=== PATIENT | female | born 1930 | race Caucasian/White ===

== ENCOUNTER → 2016-10-17 | Outpatient (CLI) | payer OTHER | LOC: FIMAGING 08:21 | PROVIDERS: ATTEND Internal Medicine | DX: M81.0 Age-related osteoporosis without current pathological fracture (principal); E03.9 Hypothyroidism, unspecified; I48.91 Unspecified atrial fibrillation; I10 Essential (primary) hypertension; E78.00 Pure hypercholesterolemia, unspecified ==

== ENCOUNTER 2017-04-26 15:59 | Emergency (ER) | payer OTHER ==
--- NOTE | 2017-04-26 18:09 | EDPHY ---
H & P Time Seen by Provider: 04/26/17 17:43 HPI/ROS: CHIEF COMPLAINT: Head injury HISTORY OF PRESENT ILLNESS: 86-year-old female history of daily Eliquis use arrives via private vehicle after she sustained a mechanical fall when she tripped on her [place] lights impacting the occiput of her head with no loss of consciousness. Occurred shortly prior to arriva. She sustained a laceration to her occiput. She denies: Headache, nausea, vomiting, midline C- spine pain, peripheral paresthesia, weakness, numbness, midline back pain or any other symptoms. PRIMARY CARE PROVIDER: Dr. Bree Pool REVIEW OF SYSTEMS: A ten point review of systems was performed and is negative with the exception of the items mentioned in the HPI PAST MEDICAL/SURGICAL HISTORY: Daily Eliquis use secondary to cardiac history SOCIAL HISTORY: denies alcohol use at time of incident PHYSICAL EXAM 1) GENERAL: Well-developed, well-nourished, alert and oriented. Appears to be in no acute distress. Answering questions appropriately. 2) HEAD: Normocephalic, 4 cm occipital laceration. No galea defects 3) HEENT: Pupils equal, round, reactive to light bilaterally. Negative Horners. Nasopharynx, oropharynx, clear. No deformity or angulation of nose. No septal hematoma. No rhinorrhea. No oral trauma. Ears bilaterally with normal tympanic membranes. No hemotympanum. No fluid or blood in the external auditory canal. No raccoon eyes. No Hubbard sign. Teeth are normally aligned with no gross malocclusion, TMJ bilaterally nontender, facial bones nontender including the zygomatic arch, maxilla mandible. 4) NECK: No cervical collar is on. Posterior cervical spine is nontender, no stepoff, no effusion. Full range of motion which does not elicit any midline cervical spine pain, no posterior midline tenderness, no step-off. 5) LUNGS: Clear to auscultation bilaterally, no wheezes, no rhonchi, no retractions. No obvious signs of trauma. No chest wall pain. No flaring, no grunting. Moving symmetrically. No crepitus. 6) HEART: Regular rate and rhythm, 7) ABDOMEN: No guarding, no rebound, no focal tenderness, no peritoneal signs, no signs of trauma, no ecchymosis 8) MUSCULOSKELETAL: Moving all extremities, no focal areas of tenderness, no obvious trauma. 9) BACK: No midline vertebral tenderness, no fluctuance, no step-off, no obvious trauma, no visual or palpable abnormality. 10) SKIN: occipital laceration DIFFERENTIAL DIAGNOSIS: Not necessarily in any particular order, my differential diagnosis includes, but is not limited to, concussion, skull fracture, intraparenchymal contusion, subarachnoid, subdural and epidural hematoma. The patient understands that this diagnosis is provisional and can never be 100% accurate. Smoking Status: Former smoker Constitutional: Initial Vital Signs Temperature (C) 36.6 C 04/26/17 16:06 Heart Rate 78 04/26/17 16:06 Respiratory Rate 18 04/26/17 16:06 Blood Pressure 186/78 H 04/26/17 16:06 O2 Sat (%) 94 04/26/17 16:06 O2 Delivery Mode Room Air Allergies/Adverse Reactions: Sulfa (Sulfonamide Antibiotics) Allergy (Verified 04/26/17 16:04) Home Medications: Medication Instructions Recorded Cholecalciferol Vit D3 [Vitamin D3 2,000 units PO DAILY 05/12/15 2000 units (OTC)] Levothyroxine [Synthroid] 88 mcg PO DAILY06 05/12/15 Acetaminophen [Tylenol 325mg (*)] 650 mg PO Q4 PRN #30 tab 05/22/15 Amiodarone HCl [Pacerone (*)] 200 mg PO DAILY #45 tab 05/22/15 Furosemide [Lasix 20 MG (*)] 40 mg PO BID #60 tab 05/22/15 Nitroglycerin [Nitrostat 0.4 mg 0.4 mg SL PRN PRN #1 btl 05/22/15 (*)] Potassium Cl [Klor-Con 10 meq (RX)] 20 meq PO BID #60 tab 05/22/15 Eliquis 05/20/16 Lisinopril 04/26/17 MDM/Departure - MDM Procedures: Procedure: Laceration repair. I explained the indications, risks and benefits for both laceration repair and anesthetic administration. Verbal consent was obtained from the patient . The laceration on the occiput was anesthetized using 0.5% bupivicaine with epinephrine . After anesthetic administered the patient was observed for a period of time and had no apparent adverse effects. The wound was cleaned, prepped, draped in normal sterile fashion and explored to its base. No foreign body seen, no foreign bodies palpated. There were no deep structures involved. No galea defects identified. The wound was repaired with 6 giacomo . The wound repair was complex. The procedure was performed by myself. Patient has been informed that scarring will occur, although efforts have been made to minimize this.This ED Course/Re-evaluation: 6:08 p.m.:Care of patient under supervision of secondary supervising physician Dr Sanford . Head CT ordered in this patient for trauma for the following indication: greater than 65 years old, anticoagulated.. 6:33 p.m.: Discussed with patient her negative imaging interpreted by staff radiologist Dr. Andrade. She is answering question appropriately. She is here with family members with whom she lives. Given head injury precautions instructions including delayed intracranial bleeding. She feels comfortable being discharged as do family members. Usual and customary head injury precautions and instructions provided. - Depart Disposition: Home, Routine, Self-Care Clinical Impression: Laceration Head injury due to trauma Qualifiers: Encounter type: initial encounter Qualified Code(s): S09.90XA - Unspecified injury of head, initial encounter Condition: Good Instructions: Head Injury (ED), Laceration (ED) Additional Instructions: ALTHOUGH THERE IS NO EVIDENCE OF SERIOUS HEAD INJURY AT THIS TIME, DELAYED SIGNS CAN APPEAR 24 TO 48 HOURS AFTER INJURY. WE RECOMMEND THAT YOU DESIGNATE A FRIEND OR FAMILY MEMBER TO OBSERVE YOU OVER THE NEXT FEW DAYS TO ENSURE THAT YOUR CONDITION IS PROGRESSING NORMALLY. PLEASE RETURN TO THE EMERGENCY DEPARTMENT (ED) IMMEDIATELY IF YOU HAVE INCREASED HEADACHE, PERSISTENT HEADACHE , VOMITING, WEAKNESS, CONFUSION OR VISUAL PROBLEMS. WE RECOMMEND THAT YOU DO NOT RESUME CONTACT SPORTS OR ACTIVITIES THAT TAKE COORDINATION OR BALANCE SUCH SKIING OR RIDING A BICYCLE UNTIL CLEARED TO DO SO BY YOUR DOCTOR OR BY A NEUROLOGIST. Referrals: Return, to the ER in 7-days for staple removal [Other] - 05/03/17
[2017-04-26 18:57] VITALS: BP 162/82; PULSE 66; RESP 16; TEMP 98.6; O2SAT 92
== END 2017-04-26 18:59 | disposition home or self-care (01) ==
PROC: 0HQ0XZZ Repair Scalp Skin, External Approach (ICD-10-PCS; principal; 2017-04-26)
DX: S01.01XA Laceration without foreign body of scalp, initial encounter (principal); Z79.01 Long term (current) use of anticoagulants; Z87.891 Personal history of nicotine dependence; W01.198A Fall on same level from slipping, tripping and stumbling with subsequent striking against other object, initial encounter

== ENCOUNTER 2018-03-21 14:52 | Observation (INO) | payer OTHER ==
[2018-03-21] MEDS ORDERED: DIAZEPAM 5 MG PREPACK#4 BTL TAKEHOME ONE (15:11)
[2018-03-21] MEDS ORDERED: DIAZEPAM 5 MG TAB PO ONE (15:11)
--- NOTE | 2018-03-21 15:12 | EDPHY ---
H & P Stated Complaint: left sided low back/hip pain hx of sciatica Time Seen by Provider: 03/21/18 15:04 HPI/ROS: CHIEF COMPLAINT: Right gluteal pain HISTORY OF PRESENT ILLNESS: The patient is an 87-year-old female who reports a history of recurrent episodes of low back pain. They typically improved with a heating pad and Aleve. Occasionally they radiate down her right leg but she is not having radiation today. No weakness or numbness. No recent trauma. No fever. She does not remember picking anything heavy up or any specific injury. She tried her heating pad and Aleve today without improvement. She points to her right upper gluteus as the area of pain. No radiation. Which is unusual for her previous episodes of pain. No tingling or numbness. No weakness. No incontinence. She is able to ambulate but with pain. She has frequent spasms that 10 to release after a few seconds. Her pain is improved with massage. She does take Eliquis for history of atrial fibrillation. Severity: Severe Modifying factors: Improved slightly with Aleve REVIEW OF SYSTEMS: Constitutional: denies: chills, fever, recent illness, recent injury EENTM: denies: blurred vision, double vision, nose congestion Respiratory: denies: cough, shortness of breath Cardiac: denies: chest pain, irregular heart rate, lightheadedness, palpitations Gastrointestinal/Abdominal: denies: abdominal pain, diarrhea, nausea, vomiting, blood streaked stools Genitourinary: denies: dysuria, frequency, hematuria, pain Musculoskeletal: See HPI Skin: denies: lesions, rash, jaundice, bruising Neurological: denies: headache, numbness, paresthesia, tingling, dizziness, weakness Hematologic/Lymphatic: denies: blood clots, easy bleeding, easy bruising Immunologic/allergic: denies: HIV/AIDS, transplant 10 systems reviewed and negative except as noted EXAM: GENERAL: Well-appearing, well-nourished and in moderate distress. HEAD: Atraumatic, normocephalic. EYES: Pupils equal round and reactive to light, extraocular movements intact, sclera anicteric, conjunctiva are normal. ENT: TMs normal, nares patent, oropharynx clear without exudates. Moist mucous membranes. NECK: Normal range of motion, supple without lymphadenopathy or JVD. LUNGS: Breath sounds clear to auscultation bilaterally and equal. No wheezes rales or rhonchi. HEART: Regular rate and rhythm without murmurs, rubs or gallops. ABDOMEN: Soft, nontender, normoactive bowel sounds. No guarding, no rebound. No masses appreciated. BACK: Right lower back/upper gluteal pain. No radiation. EXTREMITIES: No weakness or numbness. No paresthesias. Normal pulses. Normal range of motion, no pitting or edema. No clubbing or cyanosis. NEUROLOGICAL: Cranial nerves II through XII grossly intact. Normal speech, pain with gait but normal weight-bearing. 5/5 strength, movement in all extremities, normal sensation, normal reflexes PSYCH: Normal mood, normal affect. SKIN: Warm, dry, normal turgor, no visible rashes or lesions. Source: Patient Exam Limitations: No limitations - Personal History Current Tetanus Diphtheria and Acellular Pertussis (TDAP): Yes - Medical/Surgical History Hx Asthma: No Hx Chronic Respiratory Disease: No Hx Diabetes: No Hx Cardiac Disease: Yes Hx Renal Disease: No Hx Cirrhosis: No Hx Alcoholism: No Hx HIV/AIDS: No Hx Splenectomy or Spleen Trauma: No Other PMH: Hypertension, Hyperlipidemia, Atrial Fib. 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 - Family History Significant Family History: No pertinent family hx - Social History Smoking Status: Former smoker Alcohol Use: None Drug Use: None Constitutional: Initial Vital Signs Temperature (C) 36.4 C 03/21/18 14:57 Heart Rate 77 03/21/18 14:57 Respiratory Rate 16 03/21/18 14:57 Blood Pressure 179/80 H 03/21/18 14:57 O2 Sat (%) 96 03/21/18 14:57 O2 Delivery Mode Room Air Allergies/Adverse Reactions: Sulfa (Sulfonamide Antibiotics) Allergy (Verified 04/26/17 16:04) Home Medications: Medication Instructions Recorded Cholecalciferol Vit D3 [Vitamin D3 2,000 units PO DAILY 05/12/15 2000 units (OTC)] Levothyroxine [Synthroid] 88 mcg PO DAILY06 05/12/15 Acetaminophen [Tylenol 325mg (*)] 650 mg PO Q4 PRN #30 tab 05/22/15 Amiodarone HCl [Pacerone (*)] 200 mg PO DAILY #45 tab 05/22/15 Furosemide [Lasix 20 MG (*)] 40 mg PO BID #60 tab 05/22/15 Nitroglycerin [Nitrostat 0.4 mg 0.4 mg SL PRN PRN #1 btl 05/22/15 (*)] Potassium Cl [Klor-Con 10 meq (RX)] 20 meq PO BID #60 tab 05/22/15 Eliquis 05/20/16 Lisinopril 04/26/17 ALENDRONATE SODIUM 03/21/18 Stool Softener 03/21/18 Medical Decision Making - Diagnostics Imaging Results: Imaging Impressions Lumbar Spine CT 03/21/18 17:21 Impression: 1. Multilevel moderate to severe degenerative disk disease and facet arthropathy, as described above. 2. L4-L5: Severe central canal stenosis secondary to severe degenerative disk disease and bilateral facet arthropathy. 3. L5-S1: Moderate central canal stenosis secondary to moderate degenerative disk disease and bilateral facet arthropathy. 4. L3-L4: Moderate to severe central canal stenosis secondary to moderate degenerative disk disease, left paramedian disk herniation, and severe bilateral facet arthropathy. 5. Recommend MRI lumbar spine and Neurosurgery Consult. 6. Please see above findings. Findings and recommendations discussed with Emergency Department physician, Virgil Reagan M.D., at 1805 hours, on March 21, 2018. Final report concurs with initial preliminary interpretation. Pelvis CT 03/21/18 17:21 Impression: 1. Severe central canal stenosis at L3-L4 and L4-L5 secondary to severe degenerative disk disease and facet arthropathy. Consider MRI lumbar spine. 2. Sigmoid diverticulosis without diverticulitis. 3. No evidence of appendicitis. 4. Constipation. 5. No evidence of gluteus masses or hematomas. Findings and recommendations discussed with Emergency Department physician, VIRGIL REAGAN at 1800 hour, 03/21/2018. Final report concurs with initial preliminary interpretation. Imaging: Discussed imaging studies w/ orthopedically impaired teacher Radiologist Procedures: Bupivacaine injection: Patient was given 10 cc of bupivacaine 0.5 without epinephrine. He was injected into her trigger point in the right upper gluteus area. She tolerated the procedure well. This is done under sterile conditions. ED Course/Re-evaluation: The patient denies any trauma, fever, immunocompromise or high risk signs for low back pain. We we discussed treatment options and agreed to try muscle relaxant. I will give her Valium. She understands that it will be sedating. Her states "so I can count on a TV dinner tonight then". I do not think that imaging is warranted because there is no sign of trauma. Patient and agree with this. Pain is the muscular area of her gluteus improves with massage. Could be an element of SI joint pain. She and her actually had an appointment here today for phlebotomy. Her primary has ordered LFTs and TSH. We will do those here for her in the ER. 4:20 p.m. 45 min after receiving Valium the patient still is having significant pain. She is now requesting the IM bupivacaine injection that was offered previously. This was done under sterile conditions. The patient tolerated the procedure well. 5:20 p.m. the patient has not had any relief of her symptoms. We will place an IV and give Dilaudid and I will order CT scan. 6:15 p.m. we discussed the CT results which do not reveal any fractures or the pelvic abnormalities however she does have severe central canal stenosis particularly at the L4-5 level. This would correlate with her right gluteal pain. It does not radiate down her leg however. She states that in the past it has. She denies paresthesias or weakness. I think that an MRI is probably indicated at some point although I am not sure needs to be done emergently if she can currently ambulate and does not have any weakness or incontinence etc. She is very eager to go home is not wish to be admitted to the hospital. She thinks that her pain is feeling much better. We will give her road test. 6:45 p.m. the patient is able to ambulate but with significant pain. No weakness appreciated. I would like to admit her for pain control. She agrees to this. I have also ordered an MRI. I have consulted the hospitalist service who will admit. We will likely consult Neurosurgery after the MRI however I do not think she is an acute candidate for surgical intervention because she is not exhibiting weakness or paresthesias. Differential Diagnosis: Partial list of the Differential diagnosis considered include but were not limited to; low back pain, radiculopathy, muscle spasm and although unlikely based on the history and physical exam, I also considered infection, fracture, tumor, hematoma. - Data Points Laboratory Results: Laboratory Results 03/21/18 15:30 03/21/18 15:30 03/21/18 03/21/18 03/21/18 15:30 15:30 15:30 WBC 7.36 10^3/uL 10^3/uL (3.80-9.50) RBC 3.95 10^6/uL L 10^6/uL (4.18-5.33) Hgb 13.0 g/dL g/dL (12.6-16.3) Hct 39.6 % % (38.0-47.0) MCV 100.3 fL H fL (81.5-99.8) MCH 32.9 pg pg (27.9-34.1) MCHC 32.8 g/dL g/dL (32.4-36.7) RDW 12.9 % % (11.5-15.2) Plt Count 230 10^3/uL 10^3/uL (150-400) MPV 9.7 fL fL (8.7-11.7) Neut % (Auto) 63.4 % % (39.3-74.2) Lymph % (Auto) 22.3 % % (15.0-45.0) [place] % (Auto) 10.1 % % (4.5-13.0) Eos % (Auto) 2.7 % % (0.6-7.6) Baso % (Auto) 1.0 % % (0.3-1.7) Nucleat RBC Rel Count 0.0 % % (0.0-0.2) Absolute Neuts (auto) 4.67 10^3/uL 10^3/uL (1.70-6.50) Absolute Lymphs (auto) 1.64 10^3/uL 10^3/uL (1.00-3.00) Absolute Monos (auto) 0.74 10^3/uL 10^3/uL (0.30-0.80) Absolute Eos (auto) 0.20 10^3/uL 10^3/uL (0.03-0.40) Absolute Basos (auto) 0.07 10^3/uL 10^3/uL (0.02-0.10) Absolute Nucleated RBC 0.00 10^3/uL 10^3/uL (0-0.01) Immature Gran % 0.5 % % (0.0-1.1) Immature Gran # 0.04 10^3/uL 10^3/uL (0.00-0.10) Sodium 137 mEq/L mEq/L (135-145) Potassium 4.5 mEq/L mEq/L (3.3-5.0) Chloride 100 mEq/L mEq/L (97-110) Carbon Dioxide 28 mEq/l mEq/l (22-31) Anion Gap 9 mEq/L mEq/L (6-14) BUN 25 mg/dL H mg/dL (7-23) Creatinine 1.2 mg/dL H mg/dL (0.6-1.0) Estimated GFR 43 Glucose 84 mg/dL mg/dL (70-100) Calcium 9.1 mg/dL mg/dL (8.5-10.4) Total Bilirubin 0.4 mg/dL mg/dL (0.1-1.4) Conjugated Bilirubin 0.2 mg/dL mg/dL (0.0-0.5) Unconjugated Bilirubin 0.2 mg/dL mg/dL (0.0-1.1) AST 29 IU/L IU/L (14-46) ALT 25 IU/L IU/L (9-52) Alkaline Phosphatase 74 IU/L IU/L (38-126) Total Protein 6.8 g/dL g/dL (6.3-8.2) Albumin 3.8 g/dL g/dL (3.5-5.0) TSH 3.300 uIU/mL uIU/mL (0.465-4.680) Medications Given: Discontinued Medications Diazepam (Valium) 5 mg PO EDNOW ONE Stop: 03/21/18 15:12 Last Admin: 03/21/18 15:15 Dose: 5 mg Diazepam (Valium 5 Mg Prepack#4) 1 btl TAKEHOME EDNOW ONE Stop: 03/21/18 15:12 Last Admin: 03/21/18 15:23 Dose: 1 btl Hydromorphone HCl (Dilaudid) 0.5 mg IVP EDNOW ONE Stop: 03/21/18 17:23 Last Admin: 03/21/18 17:37 Dose: 0.5 mg Departure - Departure Disposition: [facility] Acute Clinical Impression: Radiculopathy of lumbar region Condition: Fair
[2018-03-21] MEDS ORDERED: HYDROmorphONE/DILAUDID 2 MG/ML INJ IVP ONE (17:22)
[2018-03-21 18:34] LABS: PLATELET COUNT 230 10^3/uL (150-400)
[2018-03-21] MEDS ORDERED: ONDANSETRON 4 MG/2 ML VIAL IVP PRN (22:44)
[2018-03-21] MEDS ORDERED: HYDROCODONE/APAP 5/325 TAB PO PRN (22:44)
[2018-03-21] MEDS ORDERED: ONDANSETRON DISINTEGRATING 4 MG TAB PO PRN (22:44)
[2018-03-21] MEDS ORDERED: HYDROmorphONE/DILAUDID 1 MG/ML INJ IVP PRN (22:44)
[2018-03-21] MEDS ORDERED: ACETAMINOPHEN 325 MG TAB PO PRN (22:44)
[2018-03-21] MEDS ORDERED: NS 1,000 ML IV SCH (22:45)
[2018-03-22] MEDS ORDERED: NITROGLYCERIN 0.4 MG BTL SL PRN (00:44)
[2018-03-22] MEDS: APIXABAN 5 MG TAB PO SCH ×2 (01:13→10:01)
--- NOTE | 2018-03-22 03:28 | PDGENHP ---
History and Physical - Chief Complaint right low back and buttock pain - History of Present Illness Source - Patient provides history and appears reliable. EMR reviewed and case discussed with accepting hospitalist. 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 Patient reports that she has had ongoing issues intermittently with her lumbar pain and occasional radiculopathy down into her lower leg. Patient describes the pain as sharp stabbing in her right lower lumbar region/sacrum with radiation into her right gluteus. Patient reports that her symptoms typically will improve with a hot pad after several hours however today they did not and were more severe than normal. Patient denies any recent falls or trauma. She does have a previous history of head injury due to mechanical fall. Patient denies any numbness or tingling. She denies any focal weakness. At this time patient reports that her pain is significantly improved she does have a still a bit of aching in her buttock on the right but not the same sharp stabbing pain she was experiencing previously. Patient denies any urinary retention no fecal incontinence. History Information - Allergies/Home Medication List Allergies/Adverse Reactions: Sulfa (Sulfonamide Antibiotics) Allergy (Verified 04/26/17 16:04) Home Medications: Levothyroxine [Synthroid] 88 mcg PO DAILY06 05/12/15 [Last Taken 03/21/18] Lisinopril [Zestril 20 mg (*)] 20 mg PO DAILY 04/26/17 [Last Taken 03/21/18] Apixaban [Eliquis] 5 mg PO BID 03/21/18 [Last Taken 03/21/18 09:00] Furosemide [Lasix 20 MG (*)] 40 mg PO BID 03/21/18 [Last Taken 03/21/18 09:00] Potassium Chloride [Klor-Con M20] 20 meq PO BID 03/21/18 [Last Taken 03/21/18 09 :00] I have personally reviewed and updated: family history, medical history, social history, surgical history - Past Medical History Additional medical history: HTN, HLD, epistaxis requiring cautery, paroxysmal atrial fibrillation on Eliquis, CHF NOS, CAD status post 1 vessel CABG, history of mechanical fall leading to head injury. Hypothyroidism. CKD stage 3 (cr 1.1- 1.3). - Surgical History Additional surgical history: Mitral valve replacement, tricuspid valve repair, CABG 1 vessel 2014, cautery of left knee air for epistaxis, cataract extraction with lens placement bilaterally. - Family History Additional family history: Father-, degenerative disc disease. Mother- , CAD and CHF. Sister-, CAD - Social History Smoking Status: Former smoker (Quit .) Alcohol Use: None Drug Use: None Additional social history: Patient is lives with her . Cor status-full not to exceed 5 days of life support. Review of Systems Review of Systems: ROS: 10pt was reviewed & negative except for what was stated in HPI & below Constitutional: Reports: no symptoms. Denies: recent illness EENMT: Reports: no symptoms Cardiac: Reports: no symptoms. Denies: edema Respiratory: Reports: no symptoms Gastrointestinal: Reports: no symptoms, constipation Genitourinary: Reports: no symptoms Muscolosketal: Reports: back pain (See HPI), muscle pain (Right gluteal aching.) Skin: Reports: no symptoms. Denies: rash Neurological: Reports: no symptoms. Denies: depressed, emotional problems, numbness, tingling, tremors, weakness Hematologic/Lymphatic: Reports: no symptoms Physical Exam Physical Exam: Selected Entries 03/21/18 14:57 Blood Pressure Automatic Method Heart Rate 77 Respiratory 16 Rate O2 Sat (%) 96 Temperature (C) 36.4 C Blood Pressure 179/80 H Mean Arterial 113 H Pressure (MAP) O2 Delivery Room Air Mode Temperature Oral Source Temp Pulse Resp BP Pulse Ox 36.6 C 67 16 152/76 H 96 03/21/18 20:18 03/21/18 21:13 03/21/18 21:13 03/21/18 21:13 03/21/18 21:13 O2 (L/minute) 2 Constitutional: no apparent distress, appears nourished, other (NAD. Patient is resting comfortably in her bed. She does lie still some limits movement of her back.) Eyes: PERRL (Slightly decreased reactivity light bilaterally but symmetric.), anicteric sclera, EOMI, No scleral injection Ears, Nose, Mouth, Throat: moist mucous membranes, other (No nasal discharge), No poor dentition Cardiovascular: regular rate and rhythym, no murmur, rub, or gallop, pulses symmetric bilaterally, other (Slightly distant heart sounds.), No systolic murmur, No edema Peripheral Pulses: 1+: dorsalis-pedis (R), dorsalis-pedis (L) Respiratory: no respiratory distress, no rales or rhonchi, clear to auscultation , No inspiratory crackles, No respiratory distress Gastrointestinal: normoactive bowel sounds, soft, non-tender abdomen, no palpable masses (Abdomen soft but full), No distension Genitourinary: no bladder tenderness, No gardner in urethra Skin: warm, normal color, no rashes or abrasions Musculoskeletal: full muscle strength, no muscle tenderness, pain with ROM ( Lumbar spine), No generalized weakness Neurologic: AAOx3, sensation intact bilaterally, other (Nonfocal exam.), No facial droop Psychiatric: interacting appropriately, not anxious, not encephalopathic, thought process linear, No poor insight, No poor judgement, No poor memory Lab Data & Imaging Review 03/21/18 15:30 03/21/18 15:30 WBC 7.36 10^3/uL (3.80-9.50) 03/21/18 15:30 RBC 3.95 10^6/uL (4.18-5.33) L 03/21/18 15:30 Hgb 13.0 g/dL (12.6-16.3) 03/21/18 15:30 Hct 39.6 % (38.0-47.0) 03/21/18 15:30 MCV 100.3 fL (81.5-99.8) H 03/21/18 15:30 MCH 32.9 pg (27.9-34.1) 03/21/18 15:30 MCHC 32.8 g/dL (32.4-36.7) 03/21/18 15:30 RDW 12.9 % (11.5-15.2) 03/21/18 15:30 Plt Count 230 10^3/uL (150-400) 03/21/18 15:30 MPV 9.7 fL (8.7-11.7) 03/21/18 15:30 Neut % (Auto) 63.4 % (39.3-74.2) 03/21/18 15:30 Lymph % (Auto) 22.3 % (15.0-45.0) 03/21/18 15:30 [place] % (Auto) 10.1 % (4.5-13.0) 03/21/18 15:30 Eos % (Auto) 2.7 % (0.6-7.6) 03/21/18 15:30 Baso % (Auto) 1.0 % (0.3-1.7) 03/21/18 15:30 Nucleat RBC Rel Count 0.0 % (0.0-0.2) 03/21/18 15:30 Absolute Neuts (auto) 4.67 10^3/uL (1.70-6.50) 03/21/18 15:30 Absolute Lymphs (auto) 1.64 10^3/uL (1.00-3.00) 03/21/18 15:30 Absolute Monos (auto) 0.74 10^3/uL (0.30-0.80) 03/21/18 15:30 Absolute Eos (auto) 0.20 10^3/uL (0.03-0.40) 03/21/18 15:30 Absolute Basos (auto) 0.07 10^3/uL (0.02-0.10) 03/21/18 15:30 Absolute Nucleated RBC 0.00 10^3/uL (0-0.01) 03/21/18 15:30 Immature Gran % 0.5 % (0.0-1.1) 03/21/18 15:30 Immature Gran # 0.04 10^3/uL (0.00-0.10) 03/21/18 15:30 Sodium 137 mEq/L (135-145) 03/21/18 15:30 Potassium 4.5 mEq/L (3.3-5.0) 03/21/18 15:30 Chloride 100 mEq/L (97-110) 03/21/18 15:30 Carbon Dioxide 28 mEq/l (22-31) 03/21/18 15:30 Anion Gap 9 mEq/L (6-14) 03/21/18 15:30 BUN 25 mg/dL (7-23) H 03/21/18 15:30 Creatinine 1.2 mg/dL (0.6-1.0) H 03/21/18 15:30 Estimated GFR 43 03/21/18 15:30 Glucose 84 mg/dL (70-100) 03/21/18 15:30 Calcium 9.1 mg/dL (8.5-10.4) 03/21/18 15:30 Total Bilirubin 0.4 mg/dL (0.1-1.4) 03/21/18 15:30 Conjugated Bilirubin 0.2 mg/dL (0.0-0.5) 03/21/18 15:30 Unconjugated Bilirubin 0.2 mg/dL (0.0-1.1) 03/21/18 15:30 AST 29 IU/L (14-46) 03/21/18 15:30 ALT 25 IU/L (9-52) 03/21/18 15:30 Alkaline Phosphatase 74 IU/L (38-126) 03/21/18 15:30 Total Protein 6.8 g/dL (6.3-8.2) 03/21/18 15:30 Albumin 3.8 g/dL (3.5-5.0) 03/21/18 15:30 TSH 3.300 uIU/mL (0.465-4.680) 03/21/18 15:30 Imaging Review: MRI of the Lumbar Spine (Without Contrast) Clinical Indications: Low back pain in an 87-year-old female. Technique: Sagittal and axial T1 and T2 MR sequences of the lumbar spine are performed, without contrast. A sagittal STIR sequence was also obtained. Comparison: Comparison is made to CT of the lumbar spine performed earlier today. Findings: Lumbar vertebral bodies are of normal height, without compression fractures. Conus medullaris appears normal and ends at T12-L1. Incidentally, rounded areas of T2 hyperintensity are noted in the kidneys bilaterally, presumably representing parapelvic cysts. L1-L2: There is a mild disk bulge, without cristo disk herniation. There is facet hypertrophy, without canal stenosis or nerve root compression. L2-L3: There is a diffuse disk bulge, without cristo disk herniation. There is facet hypertrophy, more pronounced on the right side, resulting in right lateral recess impingement , without canal stenosis. L3-L4: A diffuse disk bulge or subligamentous disk herniation combines with facet hypertrophy and ligamentous prominence resulting in moderately severe central canal stenosis and prominent left lateral recess stenosis and left neural foraminal impingement. L4-L5: Disk space loss and prominent disk osteophyte complex combines with pronounced facet hypertrophy and ligamentous prominence resulting in severe central canal stenosis and bilateral lateral recess stenosis. L5-S1: Disk degenerative changes and a diffuse disk bulge are seen, without canal stenosis or significant nerve root impingement. Impression: 1. Prominent multilevel degenerative changes, as detailed above, and previously described on the lumbar CT. 2. Stenosis is most pronounced at L3-L4 and at L4-L5. See above report for findings at specific levels. Results called and discussed with Johann Diane M.D., on March 21, 2018 at 2110. Dictated By: Damon Wilson MD CT Scan of the Lumbar Spine, Without Contrast, With Multiplanar Reconstructions , at 1748 hours Clinical Indications: Severe right gluteal pain. Technique: Thinly collimated multidetector helical CT imaging of the lumbar spine was reviewed in multiple planes. Multiplanar reconstructions reviewed on [employer] workstation and performed to better evaluate alignment. Dose reduction techniques were utilized. Comparison: None. Findings: No definite acute lumbar spine fracture. Mild levoscoliosis. No evidence of destructive osseous lesions. T7-T8: No bony stenosis. T8-T9: No bony stenosis. T9-T10: Right paramedian chronic disk herniation, with calcification, resulting in right lateral recess stenosis and mild central canal stenosis. T10-T11: Mild degenerative disk disease and moderate bilateral facet arthropathy resulting in mild central canal stenosis. T11-T12: Right-sided degenerative osteophytes. No bony central canal stenosis. T12-L1: Ventral osteophytes, without bony central canal stenosis. L1-L2: Moderate degenerative disk disease and ventral osteophytes. No bony central canal stenosis. L2-L3: Moderate degenerative disk disease, with disk bulge and moderate bilateral facet arthropathy, resulting in mild central canal stenosis. L3-L4: Moderate degenerative disk disease, vacuum disk phenomena, broad-based left paramedian disk herniation, and severe bilateral facet arthropathy resulting in moderate to severe central canal stenosis. L4-L5: Severe degenerative disk disease, with circumferential disk bulge and osteophytes, severe bilateral facet arthropathy, ligamentum flavum hypertrophy, and degenerative retrolisthesis, resulting in severe central canal stenosis and mild bilateral neural foraminal stenosis. L5-S1: Moderate degenerative disk disease and severe bilateral facet arthropathy resulting in moderate central canal stenosis and moderate bilateral neural foraminal stenosis. Atherosclerotic aorta and iliac arteries, without aneurysm. Sigmoid diverticulosis. Impression: 1. Multilevel moderate to severe degenerative disk disease and facet arthropathy, as described above. 2. L4-L5: Severe central canal stenosis secondary to severe degenerative disk disease and bilateral facet arthropathy. 3. L5-S1: Moderate central canal stenosis secondary to moderate degenerative disk disease and bilateral facet arthropathy. 4. L3-L4: Moderate to severe central canal stenosis secondary to moderate degenerative disk disease, left paramedian disk herniation, and severe bilateral facet arthropathy. 5. Recommend MRI lumbar spine and Neurosurgery Consult. 6. Please see above findings. Findings and recommendations discussed with Emergency Department physician, Johann Diane M.D., at 1805 hours, on March 21, 2018. Final report concurs with initial preliminary interpretation. CT pelvis without intravenous contrast History: Right buttock pain, right pelvic pain. Technique: Noncontrast axial computed tomographic images of the pelvis. Multiplanar reconstructions including 3-D reconstructions performed and evaluated on [employer] workstation in order to better evaluate for pelvic bone fractures. Dose reduction technique utilized. Findings: Sigmoid diverticulosis without diverticulitis. No distal bowel obstruction. Appendix appears normal without inflammatory changes. Bladder contour is grossly unremarkable. Mild constipation with fecalization of the terminal ileum. No significant pelvic or inguinal adenopathy. No evidence of pelvic hematomas. Atherosclerotic lower abdominal aorta and iliac arteries without aneurysm. No evidence of pelvic bone fracture. Sacrum appears intact without evidence of sacral insufficiency fracture. Probable benign bone island right inferior issue ramus. No definite destructive osseous lesions. L4-L5 and L5-S1 severe degenerative disease and facet arthropathy resulting in L4-L5 severe central canal stenosis and L5-S1 moderate central canal stenosis. L3-L4 left paramedian disk herniation, degenerative disease and facet arthropathy resulting in severe central canal stenosis. Mild to moderate osteoarthritis bilateral hip joints with mild joint space narrowing and femoral head osteophytes. Impression: 1. Severe central canal stenosis at L3-L4 and L4-L5 secondary to severe degenerative disk disease and facet arthropathy. Consider MRI lumbar spine. 2. Sigmoid diverticulosis without diverticulitis. 3. No evidence of appendicitis. 4. Constipation. 5. No evidence of gluteus masses or hematomas. Findings and recommendations discussed with Emergency Department physician, JOHANN DIANE at 1800 hour, 03/21/2018. Final report concurs with initial preliminary interpretation. 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 #Radiculopathy of lumbar region (Acute) secondary to multi level degenerative disc disease most prominent at L3-4 and L4-5 with severe central canal stenosis. Left foraminal impingement is noted however patient's symptoms on the right side. Currently patient reports that her symptoms are nearly resolved. She is satisfied with use of a heating pad for pain management. Discussed at the advanced degenerative changes in the lumbar spine with the patient an MRI results. Discussed consultation with Neurosurgery in the morning the however patient would like to hold off at this time as she states she is feeling better and she knows it will recur given her age she would not want any intervention. She does not have any red flag signs at this time. Her left for the evening on but was desirous to know the MRI results as well. Further discussion with the patient and her family in the morning as per day team. Chronic medical issues - with exception of Eliquis this evening patient will have her bring her home medications as she is observation. #Benign essential hypertension - blood pressure is slightly elevated but acceptable for patient's age. Continue her lisinopril. #HLD - patient is not on any statin therapy. #Paroxysmal AFib on Eliquis - patient on daily amiodarone. Continue Eliquis and dose will be received this evening. #CHF NOS -patient reports she is tolerating oral intake quite well. She does not appear overloaded. #CAD status post 1 vessel CABG - patient without any chest pain. 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 Patient with porcine valves but is on Eliquis for AFib. # hypothyroidism - continue levothyroxine. #CKD stage 3 - patient is at baseline creatinine. Orally hydrating as tolerated. FEN - saline lock IV. Electrolyte monitoring replacement if needed. Cardiac diet. PPX-SCDs. Patient on Eliquis. Cor status-Full patient does not want life support more than 5 days. Disposition-patient admitted observation status on the medical floor, pending further evaluation recommendations on by Neurosurgery of patient and her family agree to proceed with consult in the morning anticipate less than 2 midnight stay.
[2018-03-22] MEDS ORDERED: LEVOTHYROXINE 88 MCG TAB PO SCH (06:00)
[2018-03-22] MEDS ORDERED: POTASSIUM CL 20 MEQ TAB PO SCH (09:00)
[2018-03-22] MEDS ORDERED: AMIODARONE HCL 200 MG TAB PO SCH (09:00)
[2018-03-22] MEDS ORDERED: FUROSEMIDE 40 MG TAB PO SCH (09:00)
[2018-03-22] MEDS ORDERED: LISINOPRIL 20 MG TAB PO SCH (09:00)
[2018-03-22 10:04] VITALS: BP 140/73
--- NOTE | 2018-03-22 12:53 | PDDCSUM ---
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 #Radiculopathy of lumbar region (Acute) secondary to multi level degenerative disc disease most prominent at L3-4 and L4-5 with severe central canal stenosis. Left foraminal impingement is noted however patient's symptoms on the right side. Currently patient reports that her symptoms are nearly resolved. She is satisfied with use of a heating pad for pain management. Discussed at the advanced degenerative changes in the lumbar spine with the patient an MRI results. Discussed consultation with Neurosurgery however patient would like to hold off at this time as she states she is feeling better and she knows it will recur given her age she would not want any intervention. She does not have any red flag signs at this time. Chronic medical issues #Benign essential hypertension - blood pressure is slightly elevated but acceptable for patient's age. Continue her lisinopril. #HLD - patient is not on any statin therapy. #Paroxysmal AFib on Eliquis - patient on daily amiodarone. Continue Eliquis, discussed with pharmacy that her dose may be higher than for age, weight, defer to OP cardiology for medication changes #CHF NOS -patient reports she is tolerating oral intake quite well. She does not appear overloaded. #CAD status post 1 vessel CABG - patient without any chest pain. 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 Patient with porcine valves but is on Eliquis for AFib. # hypothyroidism - continue levothyroxine. #CKD stage 3 - patient is at baseline creatinine. Orally hydrating as tolerated. Time Spent on discharge was >35 minutes with >50% of time spent on patient education and counseling.
== END 2018-03-22 12:00 | disposition home or self-care (01) ==
LOC: F1N 21:02
PROVIDERS: ADMIT Student in an Organized Health Care Education/Training Program; ATTEND Internal Medicine
DX: M51.16 Intervertebral disc disorders with radiculopathy, lumbar region (principal); M48.061 Spinal stenosis, lumbar region without neurogenic claudication; I12.9 Hypertensive chronic kidney disease with stage 1 through stage 4 chronic kidney disease, or unspecified chronic kidney disease; E78.5 Hyperlipidemia, unspecified; N18.3 Chronic kidney disease, stage 3 (moderate); I48.0 Paroxysmal atrial fibrillation; I50.9 Heart failure, unspecified; I25.10 Atherosclerotic heart disease of native coronary artery without angina pectoris; Z95.1 Presence of aortocoronary bypass graft; Z95.2 Presence of prosthetic heart valve; Z95.4 Presence of other heart-valve replacement
CPT/HCPCS: 72131; 72148; 72192; 96374; 97161; 97165; 99285; G0378; G8978; G8979; G8987; G8988; G8989; J1170